=== PATIENT | male | born 1975 | race Caucasian/White ===

== ENCOUNTER 2023-03-01 12:03 | Emergency (ER) | payer OTHER, SELFPAY ==
[2023-03-01 12:04] VITALS: BP 182/103; PULSE 86; RESP 15; TEMP 36.2; O2SAT 98; BMI 29.8
--- NOTE | 2023-03-01 12:14 | EX.ED.UPPERE ---
HPI <CHRISTIANO Wen - Last Filed: 03/01/23 12:55> History of Present Illness Chief Complaint: Upper Extremity Injury Narrative Narrative: Patient slipped on the ice and landed on his left shoulder. He is not exactly sure how he landed on it. No head injury. He has pain in does not want to move the shoulder. He denies weakness or paresthesias. He is right-hand dominant. PFSH <CHIRSTIANO Wen - Last Filed: 03/01/23 12:55> PFSH Medical History (Updated 03/01/23 @ 12:25 by CHRISTIANO Wen) Hypothyroid Home Medications levothyroxine 50 mcg tablet 50 mcg PO DAILY 03/01/23 [History Last Taken Unknown] Allergy/AdvReac Type Severity Reaction Status Date / Time No Known Allergies Allergy Verified 10/23/16 16:41 Surgical History (Updated 03/01/23 @ 12:22 by Micheline Wagner) Previous back surgery Social History (Updated 03/01/23 @ 12:22 by Micheline Wagner) household members: spouse housing: house current occupational status: employed Smoking Status: Never smoker ROS <CHRISTIANO Wen - Last Filed: 03/01/23 12:55> ROS ED ROS Narrative Neuro: Negative for motor/sensory dysfunction. Skin: Negative for wound. Musc: Positive for left shoulder pain, trauma. EXAM <CHRISTIANO Wen - Last Filed: 03/01/23 12:55> Physical Exam Narrative Exam Narrative: CONST: Patient sitting in no acute distress. EYES: Normal inspection. NECK: Normal inspection. RESP: No respiratory distress, CTAB. CVS: Regular rate and rhythm, no murmur, no gallop. Chest wall and clavicles nontender. SKIN: Color normal, no rash, warm, dry, intact. EXTREMITIES: Slight soft tissue swelling, no deformity or crepitus, no reproducible tenderness but pain with movement. Patient holding adducted. Full passive ROM, normal elbow flexion/extension, distal motor and sensory function median radial and ulnar nerves intact. 2+ radial pulse and brisk cap refill. NEURO: Oriented x4. PSYCH: Normal affect. Const Vital Signs: 03/01/23 12:04 Temperature 97.2 F L Temperature Source Temporal Pulse Rate 86 Respiratory Rate 15 Blood Pressure 182/103 H Blood Pressure Mean 129 Pulse Ox 98 Oxygen Delivery Method Room Air [facility] <CHRISTIANO Wen - Last Filed: 03/01/23 12:55> [facility] Narrative Medical decision making narrative: Patient had mechanical fall in his left shoulder. He has no reproducible bony tenderness but has pain with range of motion. Full passive range of motion is intact; neurovascular intact. Differential includes contusion versus fracture. ED attending interpretation of 2 view shoulder shows no fracture or dislocation. He declined analgesia here. I discussed symptomatic care at home with RICE and NSAIDs and follow-up with primary care if not improving. He was discharged in stable condition. <Dr. August Hawkins DO - Last Filed: 03/01/23 13:35> [facility] Treatment and Re-Evaluation Narrative: I have personally performed a face to face assessment of the patient and have reviewed the MARIAH Note. I performed a substantive portion of the visit including all aspects of the following. My ramirez findings include: History: Patient presents with left shoulder pain that began after a fall today. Patient states he slipped on ice and landed on his left shoulder. Patient states the pain is worse with certain movements. Patient describes his pain as sharp and aching. Patient denies any paresthesias or weakness. Patient denies any head injury or loss of consciousness. Patient denies any other injuries. Exam: All signs are stable. Patient is afebrile. Patient is in no acute distress. Musculoskeletal exam reveals tenderness over the left shoulder. There is no edema or ecchymosis. There is no bony crepitance or step-off. Range of motion was limited in all motions of the left shoulder secondary to pain. Strength is 5/5 in the radial, median, and ulnar areas. Sensation was intact to light touch in the radial, median, ulnar, and axillary areas. Medical Decision Making: Differential diagnosis includes fracture, dislocation, sprain, and contusion. X-rays of the left shoulder will be obtained to assess for fracture and dislocation. X-rays of the left shoulder were obtained. There are 2 views. On my independent interpretation, there is no acute fracture or dislocation noted. There are mild degenerative changes of the acromioclavicular joint. Radiologist also interpreted the x-rays and agrees. Patient was advised of his findings. Patient was instructed to ice and elevate the left shoulder. Patient was instructed to take Tylenol or ibuprofen as needed for pain. Patient was instructed to follow-up with his primary care physician in 5 to 7 days. Patient understood and was agreeable with the plan. All questions were answered. Discharge Plan Triage Chief Complaint: Upper Extremity Injury ED Midlevel Provider: Aggie Tanner ED Provider: August Hawkins Dx/Rx/DC Orders Clinical Impression: Contusion of left shoulder Instructions: ED Shoulder Contusion Prescriptions: No Action levothyroxine 50 mcg tablet 50 mcg PO DAILY Patient Comments: TAKE 1 TABLET BY MOUTH EVERY DAY Primary Care Provider: Ck Araujo Referrals: Ck Araujo MD [Primary Care Provider] - Activity Restrictions/Additional Instructions: Rest, ice, take Tylenol or ibuprofen as needed. If it is not improving in 7 to 10 days follow-up with your primary care doctor. Disposition Disposition: Home, Self Care
--- NOTE | 2023-03-01 12:20 | RAD_ITS ---
STUDY: X-RAY - LEFT SHOULDER REASON FOR EXAM: Male, 47 years old. Pain. TECHNIQUE: 2 view(s) of the shoulder. COMPARISON: None. FINDINGS: Normal glenohumeral articulation. Mild arthrosis of the AC joint. Normal acromion. Normal humeral head and visualized proximal humerus. Normal soft tissues. Normal visualized pulmonary apex. RAD/Shoulder min 2 Views IMPRESSION: Mild arthrosis of the AC joint. No other abnormality. Electronically Signed: Ramon Salinas MD at 12:33 EST ,
[2023-03-01 12:46] VITALS: RESP 14
== END 2023-03-01 12:46 | disposition home or self-care (01) ==
LOC: ED 12:38
PROVIDERS: Emergency Provider Emergency Medicine; PCP Family Medicine; Visit Provider Emergency Medicine
DX: S40.012A Contusion of left shoulder, initial encounter (principal); W00.0XXA Fall on same level due to ice and snow, initial encounter; E03.9 Hypothyroidism, unspecified; Z79.899 Other long term (current) drug therapy
CPT/HCPCS: 73030; 99282